=== PATIENT | female | born 1960 | race Caucasian/White ===

== ENCOUNTER 2018-01-08 08:06 | Day surgery (SDC) | payer BC, OTHER ==
[~2018-01-08 08:06] MED LIST: Lactated Ringers 1,000 ML IV SCH; Lidocaine 1%/Sod Bicarbonate in NS 8.4% 1 ML Syringe IDERM PRN; Sodium Chloride 0.9% 10 ML Syringe FLUSH PRN
[2018-01-08] MEDS ORDERED: Propofol 200 MG/20 ML SDV ONE (09:30)
[2018-01-08] MEDS ORDERED: fentaNYL 250 MCG/5 ML SDV ONE (09:30)
[2018-01-08] MEDS ORDERED: Midazolam 1 MG/ML 2 ML SDV ONE (09:30)
[2018-01-08] MEDS ORDERED: Ondansetron 4 MG/2 ML SDV ONE (09:34)
[2018-01-08] MEDS ORDERED: Succinylcholine/Normal Saline 100 MG/5 ML Syringe ONE (09:34)
[2018-01-08] MEDS ORDERED: Dexamethasone 4 MG/ML SDV ONE (09:34)
[2018-01-08] MEDS ORDERED: Lidocaine 1% 4 ML ONE (09:34)
--- NOTE | 2018-01-08 10:11 | PCM.PREANE ---
Preanesthetic Assessment - Procedure Proposed Procedure: Uterine D&C, hysteroscopy - Anesthesia/Transfusion/Family Hx Anesthesia History: Prior Anesthesia Without Reaction Family History of Anesthesia Reaction: No Transfusion History: Prior Transfusion Without Reaction - Review of Systems General: No Symptoms Pulmonary: No Symptoms Cardiovascular: Other (HTN, Hyperlipidemia) Gastrointestinal: Other (Occ GERD, ) Neurological: No Symptoms Other: Reports: None, Liver Problems (fatty liver ) - Physical Assessment NPO Status Date: 01/08/18 NPO Status Time: 07:05 O2 Sat by Pulse Oximetry: 95 Respiratory Rate: 18 Vital Signs: Last Vital Signs Temp 36.6 C 01/08/18 08:15 Pulse 74 01/08/18 08:15 Resp 18 01/08/18 08:15 BP 132/85 01/08/18 08:15 Pulse Ox 95 01/08/18 08:15 Height: 1.65 m Weight: 114.8 kg ASA Class: 2 Mental Status: Alert & Oriented x3 Airway Class: Mallampati = 2 Dentition: Reports: Normal Dentition Thyro-Mental Finger Breadths: 3 Mouth Opening Finger Breadths: 3 ROM/Head Extension: Full Lungs: Clear to Auscultation, Normal Respiratory Effort Cardiovascular: Regular Rate, Regular Rhythm - Lab Values: Laboratory Last Values WBC 5.10 K/mm3 (3.98-10.04) 01/08/18 08:45 RBC 4.85 M/mm3 (3.98-5.22) 01/08/18 08:45 Hgb 14.0 gm/L (11.2-15.7) 01/08/18 08:45 Hct 43.3 % (34.1-44.9) 01/08/18 08:45 MCV 89.3 fl (79.4-94.8) 01/08/18 08:45 MCH 28.9 pg (25.6-32.2) 01/08/18 08:45 MCHC 32.3 g/dl (32.2-35.5) 01/08/18 08:45 RDW Std Deviation 47.2 fL (36.4-46.3) H 01/08/18 08:45 Plt Count 211 K/mm3 (182-369) 01/08/18 08:45 MPV 9.8 fl (9.4-12.3) 01/08/18 08:45 Neut % (Auto) 47.4 % (34.0-71.1) 01/08/18 08:45 Lymph % (Auto) 35.3 % (19.3-51.7) 01/08/18 08:45 Wilson % (Auto) 11.4 % (4.7-12.5) 01/08/18 08:45 Eos % (Auto) 4.7 (0.7-5.8) 01/08/18 08:45 Baso % (Auto) 1.0 % (0.1-1.2) 01/08/18 08:45 Neut # (Auto) 2.42 K/mm3 (1.56-6.13) 01/08/18 08:45 Lymph # (Auto) 1.80 K/mm3 (1.18-3.74) 01/08/18 08:45 Wilson # (Auto) 0.58 K/mm3 (0.24-0.36) H 01/08/18 08:45 Eos # (Auto) 0.24 K/mm3 (0.04-0.36) 01/08/18 08:45 Baso # (Auto) 0.05 K/mm3 (0.01-0.08) 01/08/18 08:45 Urine HCG, Qual Negative (NEGATIVE) 01/08/18 08:19 - Allergies Allergies/Adverse Reactions: Allergies Allergy/AdvReac Type Severity Reaction Status Date / Time No Known Allergies Allergy Verified 01/08/18 08:49 - Blood Blood Available: No Product(s) Available: None - Anesthesia Plan Pre-Op Medication Ordered: None - Acknowledgements Anesthesia Type Planned: General Anesthesia (OETT due to trendelenberg positioning and problems with GERD and obesity ) Pt an Appropriate Candidate for the Planned Anesthesia: Yes Alternatives and Risks of Anesthesia Discussed w Pt/Guardian: Yes Pt/Guardian Understands and Agrees with Anesthesia Plan: Yes PreAnesthesia Questionnaire HEENT History: Reports: Allergic Rhinitis Cardiovascular History: Reports: High Cholesterol, Hypertension Respiratory History: Reports: None Gastrointestinal History: Reports: Gastritis Genitourinary History: Reports: None [employer] History: Reports: Other OB/BYN History: Postmenopausal bleeding Musculoskeletal History: Reports: None Neurological History: Reports: None Psychiatric History: Reports: None Endocrine/Metabolic History: Reports: None Hematologic History: Reports: None Immunologic History: Reports: None Oncologic (Cancer) History: Reports: None Other Dermatologic History: Skin abscess - Infectious Disease History Infectious Disease History: Reports: Other (See Below) Other Infectious Disease History: Cold sores - Past Surgical History Head Surgeries/Procedures: Reports: None HEENT Surgical History: Reports: None Cardiovascular Surgical History: Reports: None Respiratory Surgical History: Reports: None GI Surgical History: Reports: Cholecystectomy, Colonoscopy Female Surgical History: Reports: Section Endocrine Surgical History: Reports: None Neurological Surgical History: Reports: None Musculoskeletal Surgical History: Reports: None Oncologic Surgical History: Reports: None Dermatological Surgical History: Reports: None - SUBSTANCE USE Smoking Status *Q: Never Smoker Second Hand Smoke Exposure: No Recreational Drug Use History: No - HOME MEDS Home Medications: Home Meds Aspirin [Halfprin] 81 mg PO DAILY 01/07/18 [History] Carboxymethylcellulose Sodium [Refresh Tears 0.5% Ophth Soln] 1 drop OP BID 12/20 [History] Docusate Sodium [Colace] 100 mg PO DAILY 01/07/18 [History] Loratadine [Claritin] 10 mg PO DAILY PRN 01/07/18 [History] Magnesium Oxide 250 mg PO DAILY 01/07/18 [History] Metoprolol Succinate [Toprol XL 50mg] 50 mg PO DAILY 01/07/18 [History] Minocycline [Minocin] 100 mg PO DAILY PRN 01/07/18 [History] Multivitamin with Minerals [Multivitamins with Minerals] 1 tab PO DAILY [History] Ranitidine [Zantac] 75 mg PO DAILY PRN 01/07/18 [History] Simvastatin [Zocor] 5 mg PO BEDTIME 01/07/18 [History] Ubidecarenone [Co Q-10] 100 mg PO DAILY 01/07/18 [History] valACYclovir [Valtrex] 2,000 mg PO DAILY PRN 01/07/18 [History] - CURRENT (IN HOUSE) MEDS Current Meds: Current Medications Lactated Ringer's (Ringers, Lactated) 1,000 mls @ 125 mls/hr IV ASDIRECTED MARLINE Stop: 01/08/18 23:00 Last Admin: 01/08/18 08:50 Dose: 125 mls/hr Lidocaine/Sodium Bicarbonate (Buffered Lidocaine 1% In Ns 8.4%) 0.25 ml IDERM ONETIME PRN PRN Reason: Prior to IV Start Stop: 01/08/18 18:00 Last Admin: 01/08/18 08:49 Dose: 0.25 ml Sodium Chloride (Saline Flush) 10 ml FLUSH ASDIRECTED PRN PRN Reason: Keep Vein Open Stop: 01/08/18 18:00 Discontinued Medications Dexamethasone (Dexamethasone) Confirm Administered Dose 4 mg .ROUTE .STK-MED ONE Stop: 01/08/18 09:35 Fentanyl (Sublimaze) Confirm Administered Dose 250 mcg .ROUTE .STK-MED ONE Stop: 01/08/18 09:31 Lidocaine HCl (Xylocaine-Mpf 1%) Confirm Administered Dose 4 mls @ as directed .ROUTE .STK-MED ONE Stop: 01/08/18 09:35 Midazolam HCl (Versed 1 Mg/Ml) Confirm Administered Dose 2 mg .ROUTE .STK-MED ONE Stop: 01/08/18 09:31 Ondansetron HCl (Zofran) Confirm Administered Dose 4 mg .ROUTE .STK-MED ONE Stop: 01/08/18 09:35 Propofol (Diprivan 20 Ml) Confirm Administered Dose 200 mg .ROUTE .STK-MED ONE Stop: 01/08/18 09:31 Succinylcholine Chloride (Succinylcholine In Ns Pf) Confirm Administered Dose 100 mg .ROUTE .STK-MED ONE Stop: 01/08/18 09:35
[2018-01-08] MEDS ORDERED: Meperidine PF 50 MG/ML Syringe IVPUSH PRN (11:34)
[2018-01-08] MEDS ORDERED: Ondansetron 4 MG/2 ML SDV IVPUSH PRN (11:34)
[2018-01-08] MEDS ORDERED: diphenhydrAMINE 50 MG/ML SDV IVPUSH PRN (11:34)
[2018-01-08] MEDS ORDERED: fentaNYL 100 MCG/2 ML SDV IVPUSH PRN (11:34)
--- NOTE | 2018-01-08 11:34 | PCM.OPNOTE ---
- General Post-Op/Procedure Note Date of Surgery/Procedure: 01/08/18 Operative Procedure(s): hysteroscopy and dilation and curettage. Findings: Uterine polyp, some white calcified areas. Pre Op Diagnosis: postmenopausal bleeding Post-Op Diagnosis: Same Anesthesia Technique: General ET Tube Primary Surgeon: Patricia Wilcox Anesthesia Provider: Garth Coulter Fluid Replacement, Intraop: 700 EBL in mLs: 5 Complications: None Condition: Good Free Text/Narrative:: Patient taken to operating room. Place in lithotomy in [facility]. Prepped and draped in normal sterile fashion. Speculum placed. Anterior lip of cervix grasped with single toothed tenaculum. Cervix dilated to allow passage of a 8 mm hysteroscope. Photos taken. Curettage preformed. Patient tolerated well. Tenaculum removed and hemostatic. Instruments removed. Patient taken out of lithotomy
--- NOTE | 2018-01-08 11:34 | PCM.POSTAN ---
POST ANESTHESIA ASSESSMENT - MENTAL STATUS Mental Status: Alert, Oriented - VITAL SIGNS Pulse Rate: 82 SaO2: 92 Resp Rate: 12 Blood Pressure: 136/91 Temperature: 36.2 C - RESPIRATORY Respiratory Status: Respiratory Rate WNL, Airway Patent, O2 Saturation Stable, Supplemental Oxygen - CARDIOVASCULAR CV Status: Pulse Rate WNL, Blood Pressure Stable - GASTROINTESTINAL GI Status: No Symptoms - PAIN Pain Score: 0 - POST OP HYDRATION Hydration Status: Adequate & Stable
== END 2018-01-08 12:59 | disposition home or self-care (01) ==
LOC: JD.SDS 08:06
PROVIDERS: ATTEND Obstetrics & Gynecology
DX: C54.1 Malignant neoplasm of endometrium (principal); I10 Essential (primary) hypertension; E78.00 Pure hypercholesterolemia, unspecified; E66.9 Obesity, unspecified; Z68.41 Body mass index [BMI] 40.0-44.9, adult; K21.9 Gastro-esophageal reflux disease without esophagitis; Z79.899 Other long term (current) drug therapy
CPT/HCPCS: 36415; 58558; 81025; 85025; 93005; J0330; J1100; J2001; J2250; J2405; J3010; J7120; 00952; J2704